=== PATIENT | female | born 1930 | race Caucasian/White ===

== ENCOUNTER → 2016-08-27 | Outpatient (REF) | payer MEDICARE, OTHER ==
[2016-08-27 10:23] LABS: BASOPHILS % (AUTO) 0 % (0-2); EOSINOPHILS # (AUTO) 0.1 10^3uL; EOSINOPHILS % (AUTO) 1 % (0-4); LYMPHOCYTES # (AUTO) 1.2 X10^3; MEAN CORPUSCULAR HEMOGLOBIN 28.5 PG (26.0-34.0); MEAN CORPUSCULAR HGB CONC 32.6 g/dL (31.0-37.0); MEAN CORPUSCULAR VOLUME 87 FL (80-100); MEAN PLATELET VOLUME 11.3 FL (6.0-9.5); MONOCYTES # (AUTO) 0.5 X10^3; MONOCYTES % (AUTO) 10 % (3-11); NEUTROPHILS # (AUTO) 3.4 X10^3; NEUTROPHILS % (AUTO) 65 % (51-67); PLATELET COUNT 164 10^3uL (150-450); WHITE BLOOD COUNT 5.23 10^3uL (4.0-11.0)
[2016-08-27 10:36] LABS: ALBUMIN 4.3 g/dL (3.4-5.0); ANION GAP 13.9 MEQ/L (3-15); CALCULATED IONIZED CALCIUM 4.4 mg/dL (3.8-4.6); TOTAL PROTEIN 7.4 g/dL (6.4-8.5)
== END ==
LOC: LAB 10:15
PROVIDERS: ATTEND Family Medicine
DX: I10 Essential (primary) hypertension (principal); K51.30 Ulcerative (chronic) rectosigmoiditis without complications; R63.5 Abnormal weight gain
CPT/HCPCS: 80053; 84443; 85025